=== PATIENT | female | born 1935 | race Caucasian/White ===

== ENCOUNTER 2016-06-15 10:14 | Emergency (ER) | payer OTHER, MEDICAID ==
--- NOTE | 2016-06-15 11:37 | REP ---
Clinical: Altered mental status. Comparison: 09/09/2015 . Findings: Age-related atrophy and microvascular ischemic changes are appreciated. The ventricles and sulci are symmetric. Barnard-white differentiation is maintained. There is no evidence for acute intracranial hemorrhage, mass/mass effect, pathology or infarction. No extra-axial fluid collection. Calvarium is intact. Paranasal sinuses and mastoid air cells are clear. Impression: Age related atrophy and microvascular ischemic changes. No acute intracranial hemorrhage, infarction, or mass/mass effect. Signed by Connor Arriaga MD 06/15/2016 11:27 A
[2016-06-15 11:50] LABS: BASO % 0.4 % (0.0-1.0); EOS # 0.1 K/mm3 (0.0-0.50); EOS % 1.8 % (0.0-3.0); LARGE UNSTAINED CELL # 0.2 K/mm3 (0.0-0.4); LARGE UNSTAINED CELL % 2.5 % (0.0-4.0); LYMPH # 1.2 K/mm3 (1.5-4.5); MEAN CORPUSCULAR HEMOGLOBIN 29.5 pg (27.0-33.0); MEAN CORPUSCULAR HGB CONC 33.6 g/dl (32.0-36.5); MEAN CORPUSCULAR VOLUME 87.7 fl (80.0-96.0); MONO # 0.4 K/mm3 (0.0-0.8); MONO % 6.1 % (0.0-5.0); NEUTROPHILS # 4.3 K/mm3 (1.8-7.7); NEUTROPHILS % 70.2 % (36.0-66.0); PLATELET COUNT, AUTOMATED 170 k/mm3 (150-450); RED CELL DISTRIBUTION WIDTH 12.3 % (11.5-14.5); WHITE BLOOD COUNT 6.2 K/mm3 (4.0-10.0)
[2016-06-15 11:54] LABS: ANION GAP 9 MEQ/L (8-16); BLOOD UREA NITROGEN 18 MG/DL (7-18); CALCIUM LEVEL 9.2 MG/DL (8.8-10.2); CARBON DIOXIDE LEVEL 29 MEQ/L (21-32); CHLORIDE LEVEL 98 MEQ/L (98-107); CREATININE FOR GFR 0.91 MG/DL (0.55-1.02); GLOMERULAR FILTRATION RATE > 60.0 (>32); GLUCOSE, FASTING 145 MG/DL (83-110); POTASSIUM SERUM 4.1 MEQ/L (3.5-5.1); SODIUM LEVEL 136 MEQ/L (136-145)
[2016-06-15] MEDS ORDERED: NITROFURANTOIN (MACROBID) 100 MG CAP As Ordered ONE (13:02)
--- NOTE | 2016-06-15 13:02 | ECGEPIP ---
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
--- NOTE | 2016-06-15 13:50 | EDDOCDS ---
Physician Documentation [facility] Name: Ciara Carreno Age: 80 yrs Sex: Female : 1935 Arrival Date: 06/15/2016 Time: 10:14 Bed 4 Private MD: Floyd Fall P. Disposition: 06/15 12:52 I have independently interviewed and examined the patient, and I agree with the sd1 investigation, diagnosis and treatment plan as documented by the Resident. Disposition: 06/15/16 13:25 Discharged to Home/Self Care. Impression: Urinary tract infection, site not specified. - Condition is Stable. - Discharge Instructions: Urinary Tract Infection. - Prescriptions for Macrodantin 100 mg Oral Capsule - take 1 capsule by ORAL route every 6 hours for 10 days; 40 capsule. - Medication Reconciliation, Local Pharmacy Hours, Family Work Release form. - Follow up: Floyd Fall; When: 1 week; Reason: Recheck today's complaints. - Problem is new. - Symptoms are unchanged. - Notes: You were evaluated in the emergency department for altered mental status. It was determined that you had a urinary tract infection. Your laboratory results were essentially within normal limits. Your EKG was within normal limits. You were given an antibiotic while in the ED and a prescription was given to you at time of discharge to complete in its entirety. Please follow-up with Dr. Fall in 1 week. Historical: - Allergies: No known drug Allergies; - Home Meds: 1. Namenda XR 28 mg oral CSpX 1 cap once daily 2. atorvastatin 40 mg oral tab 1 tab once daily 3. metformin 500 mg Oral tab 1 tab 2 times per day 4. Vicodin 5-500 mg Oral tab 1 tab every 4-6 hours as needed 5. Calcarb 600 With Vitamin D Oral daily 6. Aricept 5 mg Oral tab 1 tab once daily - PMHx: Dementia; Diabetes - NIDDM: controlled; Diverticulitis; Hypertension; - PSHx: ; Colonoscopy; - Social history: Smoking status: Patient states former smoker of tobacco. No barriers to communication noted, The patient speaks fluent Swedish, Speaks appropriately for age. - Family history: Not pertinent. - : The pt / caregiver states he / she is not on anticoagulants. Home medication list is obtained from family members. - Exposure Risk Screening:: None identified. Vital Signs: 10:16 BP 167 / 83; Pulse 62; Resp 18; Temp 97.0(O); Pulse Ox 99% on R/A; Weight 72.57 kg / ct3 159.99 lbs (R); Height 5 ft. 3 in. (160.02 cm) (R); Pain 0/10; 10:23 BP 184 / 88 (auto/); jo3 10:25 Pulse 56 MON; Pulse Ox 95% ; jo3 10:38 BP 174 / 82 (auto/); jo3 10:38 Pulse 60 MON; Pulse Ox 94% ; jo3 10:53 BP 167 / 77 (auto/); jo3 10:55 Pulse 66 MON; Pulse Ox 96% ; jo3 11:08 BP 154 / 75 (auto/); jo3 11:08 Pulse 58 MON; Pulse Ox 95% ; jo3 11:23 BP 159 / 81 (auto/); jo3 11:23 Pulse 66 MON; jo3 11:38 BP 145 / 71 (auto/); jo3 11:38 Pulse 62 MON; Pulse Ox 96% ; jo3 11:56 BP 196 / 84 (auto/); jo3 11:56 Pulse 62 MON; Pulse Ox 97% ; jo3 12:06 BP 151 / 71 (auto/); jo3 12:06 Pulse 58 MON; Pulse Ox 94% ; jo3 12:08 BP 145 / 70 (auto/); jo3 12:08 Pulse 56 MON; Pulse Ox 98% ; jo3 12:23 BP 135 / 69 (auto/); jo3 12:23 Pulse 56 MON; Pulse Ox 95% ; jo3 12:38 BP 160 / 80 (auto/); jo3 12:38 Pulse 58 MON; Pulse Ox 95% ; jo3 12:53 BP 148 / 82 (auto/); jo3 12:53 Pulse 58 MON; Pulse Ox 97% ; jo3 13:08 BP 168 / 85 (auto/); jo3 13:08 Pulse 72 MON; Resp 18; Temp 97.8(O); Pulse Ox 96% ; Pain 0/10; jo3 10:16 Body Mass Index 28.34 (72.57 kg, 160.02 cm) ct3 MDM: 10:33 ECG WITH READING ER PHYS+CARDIAG ordered. EDMS 11:11 CT Head Without Contrast Ordered. EDMS 11:11 CBC with Diff Ordered. EDMS 11:11 BMP Ordered. EDMS 11:11 UA Ordered. EDMS 11:59 Financial registration complete. mm15 12:02 [facility] Payment Agreement was scanned into [email or web address] and attached to record. mm15 12:37 CBC with Diff Reviewed. sd1 12:37 BMP Reviewed. sd1 12:37 UA Reviewed. sd1 12:37 CT Head Without Contrast Reviewed. sd1 12:41 REGULAR DIET ROOM SERVICE ED+DIET ordered. EDMS 12:50 ED course: 80 yo female with comorbidities presents with family reporting mild mental sd1 status change and vomiting last pm with decreased appetite. patient reports feeling improved this am however fmaily had concerns so brought to ED exam well appearing in NAD lungs ctab heart rrrr abd nontender neuro intact. 12:51 Nitrofurantoin 100 mg PO once ordered. jo4 Administered Medications: 13:06 Drug: Nitrofurantoin 100 mg Route: PO; jo3 Signatures: Dispatcher [employer] EDVA Robyn Antony MD MD sd1 Shakeel Soriano, RN RN dy Cristy Malcolm RN RN jo3 Kb Mayer mm15 Nila Reyez DO DO jo4 The chart was reviewed and I authenticate all verbal orders and agree with the evaluation and treatment provided.Attachments: 12:02 [facility] Payment Agreement mm15 MTDD
--- NOTE | 2016-06-15 13:50 | EDDOCDS ---
Nurse's Notes [facility] Name: Ciara Carreno Age: 80 yrs Sex: Female : 1935 Arrival Date: 06/15/2016 Time: 10:14 Bed 4 Private MD: Floyd Fall P. Diagnosis: Urinary tract infection, site not specified Presentation: 06/15 10:21 Presenting complaint: Patient states: seen at Neurologist yesterday for progressive AMS dy with hx of dementia. neurologist upped her dementia regimen at that time. pt called daughter last night due to not feeling well and tearful. today not feeling right. Adult Sepsis Screening: The patient does not have new or worsening altered mentation. Patient's respiratory rate is less than 22. Systolic blood pressure is greater than 100. Patient has a qSOFA score of 0- Negative Sepsis Screen. Suicide/Homicide risk assessment- the patient denies having any suicidal and/or homicidal ideations and does not present with any other emotional, behavioral or mental health complaints. Status: Patient is not a community service patrol officer or dependent. Transition of care: patient was not received from another setting of care. 10:21 Acuity: LOKI Level 3 dy 10:21 Method Of Arrival: Walkin/Carried/Asstd dy Triage Assessment: 10:27 General: Appears in no apparent distress. Pain: Denies pain. Neurological: Level of dy Consciousness is awake, alert, obeys commands, Oriented to person, place, time. Historical: - Allergies: No known drug Allergies; - Home Meds: 1. Namenda XR 28 mg oral CSpX 1 cap once daily 2. atorvastatin 40 mg oral tab 1 tab once daily 3. metformin 500 mg Oral tab 1 tab 2 times per day 4. Vicodin 5-500 mg Oral tab 1 tab every 4-6 hours as needed 5. Calcarb 600 With Vitamin D Oral daily 6. Aricept 5 mg Oral tab 1 tab once daily - PMHx: Dementia; Diabetes - NIDDM: controlled; Diverticulitis; Hypertension; - PSHx: ; Colonoscopy; - Social history: Smoking status: Patient states former smoker of tobacco. No barriers to communication noted, The patient speaks fluent [place], Speaks appropriately for age. - Family history: Not pertinent. - : The pt / caregiver states he / she is not on anticoagulants. Home medication list is obtained from family members. - Exposure Risk Screening:: None identified. Screenin:31 Screening information is obtained from family members. Screening information is jo3 obtained from the parent. Fall risk: No risks identified. Assistance ADL's: Requires assistance with medication administration, assistance is provided by family members. Abuse/DV Screen: The patient / caregiver reports he/she is: not in a situation that causes fear, pain or injury. Nutritional screening: No deficits noted. Advance Directives:. home support is adequate. Assessment: 10:50 General: Appears in no apparent distress, comfortable, Behavior is appropriate for age, jo3 cooperative. Neurological: Level of Consciousness is awake, alert, Oriented to person, place. Respiratory: Airway is patent Respiratory effort is even, unlabored. Derm: Skin is pink, warm & dry. 11:21 General: Appears in no apparent distress, comfortable, Behavior is appropriate for age, jo3 cooperative. Pain: Denies pain. Neurological: Level of Consciousness is awake, alert, Oriented to person, place. Cardiovascular: Rhythm is sinus rhythm No ectopy. Respiratory: Airway is patent Respiratory effort is even, unlabored. Respiratory: Breath sounds are clear bilaterally. Derm: Skin is pink, warm & dry. 12:27 Reassessment: Patient appears in no apparent distress at this time. Patient denies pain jo3 at this time. Resting on stretcher at this time. Awaiting results with family at bedside. Aware of plan of care . Vital Signs: 10:16 BP 167 / 83; Pulse 62; Resp 18; Temp 97.0(O); Pulse Ox 99% on R/A; Weight 72.57 kg (R); ct3 Height 5 ft. 3 in. (160.02 cm) (R); Pain 0/10; 10:23 BP 184 / 88 (auto/); jo3 10:25 Pulse 56 MON; Pulse Ox 95% ; jo3 10:38 BP 174 / 82 (auto/); jo3 10:38 Pulse 60 MON; Pulse Ox 94% ; jo3 10:53 BP 167 / 77 (auto/); jo3 10:55 Pulse 66 MON; Pulse Ox 96% ; jo3 11:08 BP 154 / 75 (auto/); jo3 11:08 Pulse 58 MON; Pulse Ox 95% ; jo3 11:23 BP 159 / 81 (auto/); jo3 11:23 Pulse 66 MON; jo3 11:38 BP 145 / 71 (auto/); jo3 11:38 Pulse 62 MON; Pulse Ox 96% ; jo3 11:56 BP 196 / 84 (auto/); jo3 11:56 Pulse 62 MON; Pulse Ox 97% ; jo3 12:06 BP 151 / 71 (auto/); jo3 12:06 Pulse 58 MON; Pulse Ox 94% ; jo3 12:08 BP 145 / 70 (auto/); jo3 12:08 Pulse 56 MON; Pulse Ox 98% ; jo3 12:23 BP 135 / 69 (auto/); jo3 12:23 Pulse 56 MON; Pulse Ox 95% ; jo3 12:38 BP 160 / 80 (auto/); jo3 12:38 Pulse 58 MON; Pulse Ox 95% ; jo3 12:53 BP 148 / 82 (auto/); jo3 12:53 Pulse 58 MON; Pulse Ox 97% ; jo3 13:08 BP 168 / 85 (auto/); jo3 13:08 Pulse 72 MON; Resp 18; Temp 97.8(O); Pulse Ox 96% ; Pain 0/10; jo3 10:16 Body Mass Index 28.34 (72.57 kg, 160.02 cm) ct3 Vitals: 10:16 Log In Time: June 15, 2016 at 10:13. RN notified that patient meets Red Flag ct3 criteria. ED Course: 10:15 Patient visited by Daniela Palumbo PCA. ct3 10:15 Floyd Fall is Private Physician. ct3 10:15 Patient moved to Waiting ct3 10:17 Patient moved to Pre RCE ct3 10:18 Patient moved to 4 ct3 10:19 Nila Reyez DO is PHCP. jo4 10:19 Robyn Antony MD is Attending Physician. jo4 10:24 Triage Initiated dy 10:43 EKG done. (by ED staff). Reviewed by Nila Reyez DO. rn1 11:03 Patient visited by Robyn Antony MD. sd1 11:21 BMP Sent. jo3 11:21 CBC with Diff Sent. jo3 11:31 The patient / caregiver is instructed regarding the plan of care and ED course. jo3 11:31 Inserted saline lock: 18 gauge in right antecubital area. Labs drawn. (by ED staff). jo3 Sent per order to lab. 11:35 Patient visited by Cristy Malcolm RN. jo3 12:02 [facility] Payment Agreement was scanned into [employer] and attached to record. mm15 12:03 UA Sent. jo3 12:11 CT Head Without Contrast Returned. EDMS 12:27 Patient visited by Cristy Malcolm RN. jo3 12:57 Patient visited by Dave Gunn PCA. jlf 13:24 Floyd Fall is Referral Physician. jo4 13:43 EKG-ADULT Returned. EDMS 13:48 Discontinued IV lock intact, bleeding controlled, pressure dressing applied, No jo3 redness/swelling at site. No procedures done that require assistance. Administered Medications: 13:06 Drug: Nitrofurantoin 100 mg Route: PO; jo3 Order Results: Lab Order: CBC with Diff; SPEC'M 06/15/16 10:31 Test: WHITE BLOOD COUNT; Value: 6.2; Range: 4.0-10.0; Units: K/mm3; Status: F Test: RED BLOOD COUNT; Value: 4.26; Range: 4.00-5.40; Units: M/mm3; Status: F Test: HEMOGLOBIN; Value: 12.5; Range: 12.0-16.0; Units: g/dl; Status: F Test: HEMATOCRIT; Value: 37.4; Range: 36.0-47.0; Units: %; Status: F Test: MEAN CORPUSCULAR VOLUME; Value: 87.7; Range: 80.0-96.0; Units: fl; Status: F Test: MEAN CORPUSCULAR HEMOGLOBIN; Value: 29.5; Range: 27.0-33.0; Units: pg; Status: F Test: MEAN CORPUSCULAR HGB CONC; Value: 33.6; Range: 32.0-36.5; Units: g/dl; Status: F Test: RED CELL DISTRIBUTION WIDTH; Value: 12.3; Range: 11.5-14.5; Units: %; Status: F Test: PLATELET COUNT, AUTOMATED; Value: 170; Range: 150-450; Units: k/mm3; Status: F Test: NEUTROPHILS %; Value: 70.2; Range: 36.0-66.0; Abnormal: Above high normal; Units: %; Status: F Test: LYMPH %; Value: 19.0; Range: 24.0-44.0; Abnormal: Below low normal; Units: %; Status: F Test: MONO %; Value: 6.1; Range: 0.0-5.0; Abnormal: Above high normal; Units: %; Status: F Test: EOS %; Value: 1.8; Range: 0.0-3.0; Units: %; Status: F Test: BASO %; Value: 0.4; Range: 0.0-1.0; Units: %; Status: F Test: LARGE UNSTAINED CELL %; Value: 2.5; Range: 0.0-4.0; Units: %; Status: F Test: NEUTROPHILS #; Value: 4.3; Range: 1.8-7.7; Units: K/mm3; Status: F Test: LYMPH #; Value: 1.2; Range: 1.5-4.5; Abnormal: Below low normal; Units: K/mm3; Status: F Test: MONO #; Value: 0.4; Range: 0.0-0.8; Units: K/mm3; Status: F Test: EOS #; Value: 0.1; Range: 0.0-0.50; Units: K/mm3; Status: F Test: BASO #; Value: 0.0; Range: 0.0-0.2; Units: K/mm3; Status: F Test: LARGE UNSTAINED CELL #; Value: 0.2; Range: 0.0-0.4; Units: K/mm3; Status: F Lab Order: [facility]; SPEC'M 06/15/16 10:31 Test: GLUCOSE, FASTING; Value: 145; Range: 83-110; Abnormal: Above high normal; Units: MG/DL; Status: F Test: BLOOD UREA NITROGEN; Value: 18; Range: 7-18; Units: MG/DL; Status: F Test: CREATININE FOR GFR; Value: 0.91; Range: 0.55-1.02; Units: MG/DL; Status: F Test: GLOMERULAR FILTRATION RATE; Value: > 60.0; Range: >32; Status: F Test: SODIUM LEVEL; Value: 136; Range: 136-145; Units: MEQ/L; Status: F Test: POTASSIUM SERUM; Value: 4.1; Range: 3.5-5.1; Units: MEQ/L; Status: F Test: CHLORIDE LEVEL; Value: 98; Range: 98-107; Units: MEQ/L; Status: F Test: CARBON DIOXIDE LEVEL; Value: 29; Range: 21-32; Units: MEQ/L; Status: F Test: ANION GAP; Value: 9; Range: 8-16; Units: MEQ/L; Status: F Test: CALCIUM LEVEL; Value: 9.2; Range: 8.8-10.2; Units: MG/DL; Status: F Test Note: ; Units are mL/min/1.73 m2 Chronic Kidney Disease Staging per NKF: Stage I & II GFR >=60 Normal to Mildly Decreased Stage III GFR 30-59 Moderately Decreased Stage IV GFR 15-29 Severely Decreased Stage V GFR <15 Very Little GFR Left ESRD GFR <15 on PARTS COUNTER CLERK Lab Order: UA; SPEC'M 06/15/16 11:57 Test: APPEARANCE, URINE; Value: HAZY; Range: CLEAR; Status: F Test: COLOR, URINE; Value: YELLOW; Range: YELLOW; Status: F Test: PH,URINE; Value: 6.0; Range: 5.0-9.0; Units: UNITS; Status: F Test: SPECIFIC GRAVITY URINE AUTO; Value: 1.009; Range: 1.002-1.035; Status: F Test: PROTEIN, URINE AUTO; Value: NEGATIVE; Range: NEGATIVE; Units: mg/dL; Status: F Test: GLUCOSE, URINE (UA) AUTO; Value: NEGATIVE; Range: NEGATIVE; Units: mg/dL; Status: F Test: KETONE, URINE AUTO; Value: NEGATIVE; Range: NEGATIVE; Units: mg/dL; Status: F Test: UROBILINOGEN, URINE AUTO; Value: 0.2; Range: 0.0-2.0; Units: mg/dL; Status: F Test: BILIRUBIN, URINE AUTO; Value: NEGATIVE; Range: NEGATIVE; Status: F Test: NITRITE, URINE AUTO; Value: NEGATIVE; Range: NEGATIVE; Status: F Test: LEUKOCYTE ESTERASE, URINE AUTO; Value: 3+; Range: NEGATIVE; Abnormal: Above high normal; Status: F Test: BLOOD, URINE BLOOD; Value: 2+; Range: NEGATIVE; Abnormal: Above high normal; Status: F Test: WBC, URINE AUTO; Value: 29; Range: 0-3; Abnormal: Above high normal; Units: /HPF; Status: F Test: RBC, URINE AUTO; Value: 10; Range: 0-3; Abnormal: Above high normal; Units: /HPF; Status: F Test: BACTERIA, URINE AUTO; Value: 2+; Range: NEGATIVE; Abnormal: Above high normal; Status: F Test: SQUAMOUS EPITHELIAL CELL UR AU; Value: 6; Range: 0-6; Units: /HPF; Status: F Test: MUCUS, URINE; Value: SMALL; Range: NEGATIVE; Status: F Test: HYALINE CAST, URINE AUTO; Value: 0; Range: 0-1; Units: /LPF; Status: F Radiology Order: EKG-ADULT Test: EKG-ADULT REASON FOR EXAMINATION: ?overdose; Stationary ECG Study; [facility] - ED; ; Test Date: 2016-06-15; Pat Name: CIARA CARRENO Department:; Room: -; 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; : 1935 Requested By: NILA CRUZ; Order Number: [id number] Reading MD: Kameron Melgar; Measurements; Intervals [place]; Rate: 62 P: 31; OR: 145 QRS: -14; QRSD: 85 T: 44; QT: 451; QTc: 461; Interpretive Statements; SINUS RHYTHM; NONSPECIFIC T-WAVE ABNORMALITY; ; Electronically Signed On 06-15-2016 13:02:17 EST by Kameron Melgar; Radiology Order: CT Head Without Contrast Test: CT Head Without Contrast REASON FOR EXAMINATION: Altered mental status; Clinical: Altered mental status.; ; Comparison: 09/09/2015 .; ; Findings:; Age-related atrophy and microvascular ischemic changes are appreciated. The; ventricles and sulci are symmetric. Barnard-white differentiation is maintained.; There is no evidence for acute intracranial hemorrhage, mass/mass effect,; pathology or infarction. No extra-axial fluid collection. Calvarium is intact.; Paranasal sinuses and mastoid air cells are clear.; ; Impression:; Age related atrophy and microvascular ischemic changes.; No acute intracranial hemorrhage, infarction, or mass/mass effect.; ; ; Signed by; Connor Arriaga MD 06/15/2016 11:27 A; Outcome: 13:25 Discharge ordered by Provider. jo4 13:48 Discharge Assessment: Patient awake, alert and oriented x 3. No cognitive and/or jo3 functional deficits noted. Patient verbalized understanding of disposition instructions. patient administered narcotics - no. The following High Risk Discharge criteria are identified: None. Discharged to home ambulatory, with family. Condition: stable Condition: improved. Discharge instructions given to patient, Instructed on discharge instructions, follow up and referral plans. medication usage, Demonstrated understanding of instructions, medications, Pt was receptive of discharge instructions/ teaching. CT Study completed. Property sent home with patient. 13:49 Patient left the ED. jo3 Signatures: Dispatcher [employer] EDMS Robyn Antony MD MD sd1 Shakeel Soriano, RN RN Cristy Azul RN RN jo3 Daniela Palumbo, SUPPLY CHAIN LOGISTICS MANAGER SUPPLY CHAIN LOGISTICS MANAGER ct3 Kb Mayer mm15 Dave Gunn, SUPPLY CHAIN LOGISTICS MANAGER SUPPLY CHAIN LOGISTICS MANAGER jlf Antoine Lazo rn1 Nila Reyez DO DO jo4 Corrections: (The following items were deleted from the chart) 13:49 13:48 Discharge instructions given to patient, Instructed on discharge instructions, jo3 follow up and referral plans. medication usage, Demonstrated understanding of instructions, medications, Pt was receptive of discharge instructions/ teaching. jo3 13:49 13:48 No special radiology studies were completed jo3 jo3 MTDD
--- NOTE | 2016-06-17 14:50 | EDDOCDS ---
Nurse's Notes [facility] Name: Ciara Carreno Age: 80 yrs Sex: Female : 1935 Arrival Date: 06/15/2016 Time: 10:14 Bed 4 Private MD: Floyd Fall P. Diagnosis: Urinary tract infection, site not specified Presentation: 06/15 10:21 Presenting complaint: Patient states: seen at Neurologist yesterday for progressive AMS dy with hx of dementia. neurologist upped her dementia regimen at that time. pt called daughter last night due to not feeling well and tearful. today not feeling right. Adult Sepsis Screening: The patient does not have new or worsening altered mentation. Patient's respiratory rate is less than 22. Systolic blood pressure is greater than 100. Patient has a qSOFA score of 0- Negative Sepsis Screen. Suicide/Homicide risk assessment- the patient denies having any suicidal and/or homicidal ideations and does not present with any other emotional, behavioral or mental health complaints. Status: Patient is not a financial report service sales agent or dependent. Transition of care: patient was not received from another setting of care. 10:21 Acuity: LOKI Level 3 dy 10:21 Method Of Arrival: Walkin/Carried/Asstd dy Triage Assessment: 10:27 General: Appears in no apparent distress. Pain: Denies pain. Neurological: Level of dy Consciousness is awake, alert, obeys commands, Oriented to person, place, time. Historical: - Allergies: No known drug Allergies; - Home Meds: 1. Namenda XR 28 mg oral CSpX 1 cap once daily 2. atorvastatin 40 mg oral tab 1 tab once daily 3. metformin 500 mg Oral tab 1 tab 2 times per day 4. Vicodin 5-500 mg Oral tab 1 tab every 4-6 hours as needed 5. Calcarb 600 With Vitamin D Oral daily 6. Aricept 5 mg Oral tab 1 tab once daily - PMHx: Dementia; Diabetes - NIDDM: controlled; Diverticulitis; Hypertension; - PSHx: ; Colonoscopy; - Social history: Smoking status: Patient states former smoker of tobacco. No barriers to communication noted, The patient speaks fluent [place], Speaks appropriately for age. - Family history: Not pertinent. - : The pt / caregiver states he / she is not on anticoagulants. Home medication list is obtained from family members. - Exposure Risk Screening:: None identified. Screenin:31 Screening information is obtained from family members. Screening information is jo3 obtained from the parent. Fall risk: No risks identified. Assistance ADL's: Requires assistance with medication administration, assistance is provided by family members. Abuse/DV Screen: The patient / caregiver reports he/she is: not in a situation that causes fear, pain or injury. Nutritional screening: No deficits noted. Advance Directives:. home support is adequate. Assessment: 10:50 General: Appears in no apparent distress, comfortable, Behavior is appropriate for age, jo3 cooperative. Neurological: Level of Consciousness is awake, alert, Oriented to person, place. Respiratory: Airway is patent Respiratory effort is even, unlabored. Derm: Skin is pink, warm & dry. 11:21 General: Appears in no apparent distress, comfortable, Behavior is appropriate for age, jo3 cooperative. Pain: Denies pain. Neurological: Level of Consciousness is awake, alert, Oriented to person, place. Cardiovascular: Rhythm is sinus rhythm No ectopy. Respiratory: Airway is patent Respiratory effort is even, unlabored. Respiratory: Breath sounds are clear bilaterally. Derm: Skin is pink, warm & dry. 12:27 Reassessment: Patient appears in no apparent distress at this time. Patient denies pain jo3 at this time. Resting on stretcher at this time. Awaiting results with family at bedside. Aware of plan of care . Vital Signs: 10:16 BP 167 / 83; Pulse 62; Resp 18; Temp 97.0(O); Pulse Ox 99% on R/A; Weight 72.57 kg (R); ct3 Height 5 ft. 3 in. (160.02 cm) (R); Pain 0/10; 10:23 BP 184 / 88 (auto/); jo3 10:25 Pulse 56 MON; Pulse Ox 95% ; jo3 10:38 BP 174 / 82 (auto/); jo3 10:38 Pulse 60 MON; Pulse Ox 94% ; jo3 10:53 BP 167 / 77 (auto/); jo3 10:55 Pulse 66 MON; Pulse Ox 96% ; jo3 11:08 BP 154 / 75 (auto/); jo3 11:08 Pulse 58 MON; Pulse Ox 95% ; jo3 11:23 BP 159 / 81 (auto/); jo3 11:23 Pulse 66 MON; jo3 11:38 BP 145 / 71 (auto/); jo3 11:38 Pulse 62 MON; Pulse Ox 96% ; jo3 11:56 BP 196 / 84 (auto/); jo3 11:56 Pulse 62 MON; Pulse Ox 97% ; jo3 12:06 BP 151 / 71 (auto/); jo3 12:06 Pulse 58 MON; Pulse Ox 94% ; jo3 12:08 BP 145 / 70 (auto/); jo3 12:08 Pulse 56 MON; Pulse Ox 98% ; jo3 12:23 BP 135 / 69 (auto/); jo3 12:23 Pulse 56 MON; Pulse Ox 95% ; jo3 12:38 BP 160 / 80 (auto/); jo3 12:38 Pulse 58 MON; Pulse Ox 95% ; jo3 12:53 BP 148 / 82 (auto/); jo3 12:53 Pulse 58 MON; Pulse Ox 97% ; jo3 13:08 BP 168 / 85 (auto/); jo3 13:08 Pulse 72 MON; Resp 18; Temp 97.8(O); Pulse Ox 96% ; Pain 0/10; jo3 10:16 Body Mass Index 28.34 (72.57 kg, 160.02 cm) ct3 Vitals: 10:16 Log In Time: June 15, 2016 at 10:13. RN notified that patient meets Red Flag ct3 criteria. ED Course: 10:15 Patient visited by Daniela Palumbo PCA. ct3 10:15 Floyd Fall is Private Physician. ct3 10:15 Patient moved to Waiting ct3 10:17 Patient moved to Pre RCE ct3 10:18 Patient moved to 4 ct3 10:19 Nila Reyez DO is PHCP. jo4 10:19 Robyn Antony MD is Attending Physician. jo4 10:24 Triage Initiated dy 10:43 EKG done. (by ED staff). Reviewed by Nila Reyez DO. rn1 11:03 Patient visited by Robyn Antony MD. sd1 11:21 BMP Sent. jo3 11:21 CBC with Diff Sent. jo3 11:31 The patient / caregiver is instructed regarding the plan of care and ED course. jo3 11:31 Inserted saline lock: 18 gauge in right antecubital area. Labs drawn. (by ED staff). jo3 Sent per order to lab. 11:35 Patient visited by Cristy Malcolm RN. jo3 12:02 [facility] Payment Agreement was scanned into [employer] and attached to record. mm15 12:03 UA Sent. jo3 12:11 CT Head Without Contrast Returned. EDMS 12:27 Patient visited by Cristy Malcolm RN. jo3 12:57 Patient visited by Dave Gunn PCA. jlf 13:24 Floyd Fall is Referral Physician. jo4 13:43 EKG-ADULT Returned. EDMS 13:48 Discontinued IV lock intact, bleeding controlled, pressure dressing applied, No jo3 redness/swelling at site. No procedures done that require assistance. 06/16 08:55 T-Sheet-- Draft Copy was scanned into [employer] and attached to record. [facility] 11:54 ECG/EKG was scanned into [employer] and attached to record. gb Administered Medications: 06/15 13:06 Drug: Nitrofurantoin 100 mg Route: PO; jo3 Order Results: Lab Order: CBC with Diff; SPEC'M 06/15/16 10:31 Test: WHITE BLOOD COUNT; Value: 6.2; Range: 4.0-10.0; Units: K/mm3; Status: F Test: RED BLOOD COUNT; Value: 4.26; Range: 4.00-5.40; Units: M/mm3; Status: F Test: HEMOGLOBIN; Value: 12.5; Range: 12.0-16.0; Units: g/dl; Status: F Test: HEMATOCRIT; Value: 37.4; Range: 36.0-47.0; Units: %; Status: F Test: MEAN CORPUSCULAR VOLUME; Value: 87.7; Range: 80.0-96.0; Units: fl; Status: F Test: MEAN CORPUSCULAR HEMOGLOBIN; Value: 29.5; Range: 27.0-33.0; Units: pg; Status: F Test: MEAN CORPUSCULAR HGB CONC; Value: 33.6; Range: 32.0-36.5; Units: g/dl; Status: F Test: RED CELL DISTRIBUTION WIDTH; Value: 12.3; Range: 11.5-14.5; Units: %; Status: F Test: PLATELET COUNT, AUTOMATED; Value: 170; Range: 150-450; Units: k/mm3; Status: F Test: NEUTROPHILS %; Value: 70.2; Range: 36.0-66.0; Abnormal: Above high normal; Units: %; Status: F Test: LYMPH %; Value: 19.0; Range: 24.0-44.0; Abnormal: Below low normal; Units: %; Status: F Test: MONO %; Value: 6.1; Range: 0.0-5.0; Abnormal: Above high normal; Units: %; Status: F Test: EOS %; Value: 1.8; Range: 0.0-3.0; Units: %; Status: F Test: BASO %; Value: 0.4; Range: 0.0-1.0; Units: %; Status: F Test: LARGE UNSTAINED CELL %; Value: 2.5; Range: 0.0-4.0; Units: %; Status: F Test: NEUTROPHILS #; Value: 4.3; Range: 1.8-7.7; Units: K/mm3; Status: F Test: LYMPH #; Value: 1.2; Range: 1.5-4.5; Abnormal: Below low normal; Units: K/mm3; Status: F Test: MONO #; Value: 0.4; Range: 0.0-0.8; Units: K/mm3; Status: F Test: EOS #; Value: 0.1; Range: 0.0-0.50; Units: K/mm3; Status: F Test: BASO #; Value: 0.0; Range: 0.0-0.2; Units: K/mm3; Status: F Test: LARGE UNSTAINED CELL #; Value: 0.2; Range: 0.0-0.4; Units: K/mm3; Status: F Lab Order: [facility]; SPEC'M 06/15/16 10:31 Test: GLUCOSE, FASTING; Value: 145; Range: 83-110; Abnormal: Above high normal; Units: MG/DL; Status: F Test: BLOOD UREA NITROGEN; Value: 18; Range: 7-18; Units: MG/DL; Status: F Test: CREATININE FOR GFR; Value: 0.91; Range: 0.55-1.02; Units: MG/DL; Status: F Test: GLOMERULAR FILTRATION RATE; Value: > 60.0; Range: >32; Status: F Test: SODIUM LEVEL; Value: 136; Range: 136-145; Units: MEQ/L; Status: F Test: POTASSIUM SERUM; Value: 4.1; Range: 3.5-5.1; Units: MEQ/L; Status: F Test: CHLORIDE LEVEL; Value: 98; Range: 98-107; Units: MEQ/L; Status: F Test: CARBON DIOXIDE LEVEL; Value: 29; Range: 21-32; Units: MEQ/L; Status: F Test: ANION GAP; Value: 9; Range: 8-16; Units: MEQ/L; Status: F Test: CALCIUM LEVEL; Value: 9.2; Range: 8.8-10.2; Units: MG/DL; Status: F Test Note: ; Units are mL/min/1.73 m2 Chronic Kidney Disease Staging per NKF: Stage I & II GFR >=60 Normal to Mildly Decreased Stage III GFR 30-59 Moderately Decreased Stage IV GFR 15-29 Severely Decreased Stage V GFR <15 Very Little GFR Left ESRD GFR <15 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 Lab Order: UA; SPEC'M 06/15/16 11:57 Test: APPEARANCE, URINE; Value: HAZY; Range: CLEAR; Status: F Test: COLOR, URINE; Value: YELLOW; Range: YELLOW; Status: F Test: PH,URINE; Value: 6.0; Range: 5.0-9.0; Units: UNITS; Status: F Test: SPECIFIC GRAVITY URINE AUTO; Value: 1.009; Range: 1.002-1.035; Status: F Test: PROTEIN, URINE AUTO; Value: NEGATIVE; Range: NEGATIVE; Units: mg/dL; Status: F Test: GLUCOSE, URINE (UA) AUTO; Value: NEGATIVE; Range: NEGATIVE; Units: mg/dL; Status: F Test: KETONE, URINE AUTO; Value: NEGATIVE; Range: NEGATIVE; Units: mg/dL; Status: F Test: UROBILINOGEN, URINE AUTO; Value: 0.2; Range: 0.0-2.0; Units: mg/dL; Status: F Test: BILIRUBIN, URINE AUTO; Value: NEGATIVE; Range: NEGATIVE; Status: F Test: NITRITE, URINE AUTO; Value: NEGATIVE; Range: NEGATIVE; Status: F Test: LEUKOCYTE ESTERASE, URINE AUTO; Value: 3+; Range: NEGATIVE; Abnormal: Above high normal; Status: F Test: BLOOD, URINE BLOOD; Value: 2+; Range: NEGATIVE; Abnormal: Above high normal; Status: F Test: WBC, URINE AUTO; Value: 29; Range: 0-3; Abnormal: Above high normal; Units: /HPF; Status: F Test: RBC, URINE AUTO; Value: 10; Range: 0-3; Abnormal: Above high normal; Units: /HPF; Status: F Test: BACTERIA, URINE AUTO; Value: 2+; Range: NEGATIVE; Abnormal: Above high normal; Status: F Test: SQUAMOUS EPITHELIAL CELL UR AU; Value: 6; Range: 0-6; Units: /HPF; Status: F Test: MUCUS, URINE; Value: SMALL; Range: NEGATIVE; Status: F Test: HYALINE CAST, URINE AUTO; Value: 0; Range: 0-1; Units: /LPF; Status: F Radiology Order: EKG-ADULT Test: EKG-ADULT REASON FOR EXAMINATION: ?overdose; Stationary ECG Study; [facility] - ED; ; Test Date: 2016-06-15; Pat Name: CIARA CARRENO Department:; Room: -; 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; : 1935 Requested By: NILA CRUZ; Order Number: [id number] Reading MD: Kameron Melgar; Measurements; Intervals [place]; Rate: 62 P: 31; OK: 145 QRS: -14; QRSD: 85 T: 44; QT: 451; QTc: 461; Interpretive Statements; SINUS RHYTHM; NONSPECIFIC T-WAVE ABNORMALITY; ; Electronically Signed On 06-15-2016 13:02:17 EST by Kameron Melgar; Radiology Order: CT Head Without Contrast Test: CT Head Without Contrast REASON FOR EXAMINATION: Altered mental status; Clinical: Altered mental status.; ; Comparison: 09/09/2015 .; ; Findings:; Age-related atrophy and microvascular ischemic changes are appreciated. The; ventricles and sulci are symmetric. Barnard-white differentiation is maintained.; There is no evidence for acute intracranial hemorrhage, mass/mass effect,; pathology or infarction. No extra-axial fluid collection. Calvarium is intact.; Paranasal sinuses and mastoid air cells are clear.; ; Impression:; Age related atrophy and microvascular ischemic changes.; No acute intracranial hemorrhage, infarction, or mass/mass effect.; ; ; Signed by; Connor Arriaga MD 06/15/2016 11:27 A; Outcome: 13:25 Discharge ordered by Provider. jo4 13:48 Discharge Assessment: Patient awake, alert and oriented x 3. No cognitive and/or jo3 functional deficits noted. Patient verbalized understanding of disposition instructions. patient administered narcotics - no. The following High Risk Discharge criteria are identified: None. Discharged to home ambulatory, with family. Condition: stable Condition: improved. Discharge instructions given to patient, Instructed on discharge instructions, follow up and referral plans. medication usage, Demonstrated understanding of instructions, medications, Pt was receptive of discharge instructions/ teaching. CT Study completed. Property sent home with patient. 13:49 Patient left the ED. jo3 Signatures: [employer]patcher [employer] EDMS Robyn Antony MD MD sd1 Nat Roblero, Reg Reg Shakeel Blackwell, RN RN Cristy Azul RN RN jo3 Daniela Palumbo, CERTIFIED COATINGS INSPECTOR CERTIFIED COATINGS INSPECTOR ct3 Kb Mayer mm15 Dave Gunn, CERTIFIED COATINGS INSPECTOR CERTIFIED COATINGS INSPECTOR ronf Antoine Lazo rn1 Nila Reyez DO DO jo4 Robyn Choi Corrections: (The following items were deleted from the chart) 13:49 13:48 Discharge instructions given to patient, Instructed on discharge instructions, jo3 follow up and referral plans. medication usage, Demonstrated understanding of instructions, medications, Pt was receptive of discharge instructions/ teaching. jo3 13:49 13:48 No special radiology studies were completed jo3 jo3 Chart Complete MTDD
--- NOTE | 2016-06-17 14:50 | EDDOCDS ---
Physician Documentation [facility] Name: Ciara Carreno Age: 80 yrs Sex: Female : 1935 Arrival Date: 06/15/2016 Time: 10:14 Bed 4 Private MD: Floyd Fall P. Disposition: 06/15 12:52 I have independently interviewed and examined the patient, and I agree with the sd1 investigation, diagnosis and treatment plan as documented by the Resident. Disposition: 06/15/16 13:25 Discharged to Home/Self Care. Impression: Urinary tract infection, site not specified. - Condition is Stable. - Discharge Instructions: Urinary Tract Infection. - Prescriptions for Macrodantin 100 mg Oral Capsule - take 1 capsule by ORAL route every 6 hours for 10 days; 40 capsule. - Medication Reconciliation, Local Pharmacy Hours, Family Work Release form. - Follow up: Floyd Fall; When: 1 week; Reason: Recheck today's complaints. - Problem is new. - Symptoms are unchanged. - Notes: You were evaluated in the emergency department for altered mental status. It was determined that you had a urinary tract infection. Your laboratory results were essentially within normal limits. Your EKG was within normal limits. You were given an antibiotic while in the ED and a prescription was given to you at time of discharge to complete in its entirety. Please follow-up with Dr. Fall in 1 week. Historical: - Allergies: No known drug Allergies; - Home Meds: 1. Namenda XR 28 mg oral CSpX 1 cap once daily 2. atorvastatin 40 mg oral tab 1 tab once daily 3. metformin 500 mg Oral tab 1 tab 2 times per day 4. Vicodin 5-500 mg Oral tab 1 tab every 4-6 hours as needed 5. Calcarb 600 With Vitamin D Oral daily 6. Aricept 5 mg Oral tab 1 tab once daily - PMHx: Dementia; Diabetes - NIDDM: controlled; Diverticulitis; Hypertension; - PSHx: ; Colonoscopy; - Social history: Smoking status: Patient states former smoker of tobacco. No barriers to communication noted, The patient speaks fluent Armenian, Speaks appropriately for age. - Family history: Not pertinent. - : The pt / caregiver states he / she is not on anticoagulants. Home medication list is obtained from family members. - Exposure Risk Screening:: None identified. Vital Signs: 10:16 BP 167 / 83; Pulse 62; Resp 18; Temp 97.0(O); Pulse Ox 99% on R/A; Weight 72.57 kg / ct3 159.99 lbs (R); Height 5 ft. 3 in. (160.02 cm) (R); Pain 0/10; 10:23 BP 184 / 88 (auto/); jo3 10:25 Pulse 56 MON; Pulse Ox 95% ; jo3 10:38 BP 174 / 82 (auto/); jo3 10:38 Pulse 60 MON; Pulse Ox 94% ; jo3 10:53 BP 167 / 77 (auto/); jo3 10:55 Pulse 66 MON; Pulse Ox 96% ; jo3 11:08 BP 154 / 75 (auto/); jo3 11:08 Pulse 58 MON; Pulse Ox 95% ; jo3 11:23 BP 159 / 81 (auto/); jo3 11:23 Pulse 66 MON; jo3 11:38 BP 145 / 71 (auto/); jo3 11:38 Pulse 62 MON; Pulse Ox 96% ; jo3 11:56 BP 196 / 84 (auto/); jo3 11:56 Pulse 62 MON; Pulse Ox 97% ; jo3 12:06 BP 151 / 71 (auto/); jo3 12:06 Pulse 58 MON; Pulse Ox 94% ; jo3 12:08 BP 145 / 70 (auto/); jo3 12:08 Pulse 56 MON; Pulse Ox 98% ; jo3 12:23 BP 135 / 69 (auto/); jo3 12:23 Pulse 56 MON; Pulse Ox 95% ; jo3 12:38 BP 160 / 80 (auto/); jo3 12:38 Pulse 58 MON; Pulse Ox 95% ; jo3 12:53 BP 148 / 82 (auto/); jo3 12:53 Pulse 58 MON; Pulse Ox 97% ; jo3 13:08 BP 168 / 85 (auto/); jo3 13:08 Pulse 72 MON; Resp 18; Temp 97.8(O); Pulse Ox 96% ; Pain 0/10; jo3 10:16 Body Mass Index 28.34 (72.57 kg, 160.02 cm) ct3 MDM: 10:33 ECG WITH READING ER PHYS+CARDIAG ordered. EDMS 11:11 CT Head Without Contrast Ordered. EDMS 11:11 CBC with Diff Ordered. EDMS 11:11 BMP Ordered. EDMS 11:11 UA Ordered. EDMS 11:59 Financial registration complete. mm15 12:02 [facility] Payment Agreement was scanned into [employer] and attached to record. mm15 12:37 CBC with Diff Reviewed. sd1 12:37 BMP Reviewed. sd1 12:37 UA Reviewed. sd1 12:37 CT Head Without Contrast Reviewed. sd1 12:41 REGULAR DIET ROOM SERVICE ED+DIET ordered. EDMS 12:50 ED course: 80 yo female with comorbidities presents with family reporting mild mental sd1 status change and vomiting last pm with decreased appetite. patient reports feeling improved this am however fmaily had concerns so brought to ED exam well appearing in NAD lungs ctab heart rrrr abd nontender neuro intact. 12:51 Nitrofurantoin 100 mg PO once ordered. jo4 06/16 08:55 T-Sheet-- Draft Copy was scanned into [employer] and attached to record. se 11:54 ECG/EKG was scanned into [employer] and attached to record. gb Administered Medications: 06/15 13:06 Drug: Nitrofurantoin 100 mg Route: PO; jo3 Signatures: [employer]patcher [employer] EDTX Robyn Antony MD MD sd1 Nat Roblero, [place] Reg gb Shakeel Soriano, Cristy Rico RN, RN RN jo3 Kb Mayer mm15 Nila Reyez DO DO joRobyn Mandel The chart was reviewed and I authenticate all verbal orders and agree with the evaluation and treatment provided.Attachments: 12:02 [facility] Payment Agreement mm15 06/16 08:55 T-Sheet-- Draft Copy [facility] 11:54 ECG/EKG gb Chart Complete MTDD
--- NOTE | 2016-06-17 14:50 | EDDOCDS ---
Physician Documentation [facility] Name: Ciara Carreno Age: 80 yrs Sex: Female : 1935 Arrival Date: 06/15/2016 Time: 10:14 Bed 4 Private MD: Floyd Fall P. Disposition: 06/15 12:52 I have independently interviewed and examined the patient, and I agree with the sd1 investigation, diagnosis and treatment plan as documented by the Resident. Disposition: 06/15/16 13:25 Discharged to Home/Self Care. Impression: Urinary tract infection, site not specified. - Condition is Stable. - Discharge Instructions: Urinary Tract Infection. - Prescriptions for Macrodantin 100 mg Oral Capsule - take 1 capsule by ORAL route every 6 hours for 10 days; 40 capsule. - Medication Reconciliation, Local Pharmacy Hours, Family Work Release form. - Follow up: Floyd Fall; When: 1 week; Reason: Recheck today's complaints. - Problem is new. - Symptoms are unchanged. - Notes: You were evaluated in the emergency department for altered mental status. It was determined that you had a urinary tract infection. Your laboratory results were essentially within normal limits. Your EKG was within normal limits. You were given an antibiotic while in the ED and a prescription was given to you at time of discharge to complete in its entirety. Please follow-up with Dr. Fall in 1 week. Historical: - Allergies: No known drug Allergies; - Home Meds: 1. Namenda XR 28 mg oral CSpX 1 cap once daily 2. atorvastatin 40 mg oral tab 1 tab once daily 3. metformin 500 mg Oral tab 1 tab 2 times per day 4. Vicodin 5-500 mg Oral tab 1 tab every 4-6 hours as needed 5. Calcarb 600 With Vitamin D Oral daily 6. Aricept 5 mg Oral tab 1 tab once daily - PMHx: Dementia; Diabetes - NIDDM: controlled; Diverticulitis; Hypertension; - PSHx: ; Colonoscopy; - Social history: Smoking status: Patient states former smoker of tobacco. No barriers to communication noted, The patient speaks fluent Indonesian, Speaks appropriately for age. - Family history: Not pertinent. - : The pt / caregiver states he / she is not on anticoagulants. Home medication list is obtained from family members. - Exposure Risk Screening:: None identified. Vital Signs: 10:16 BP 167 / 83; Pulse 62; Resp 18; Temp 97.0(O); Pulse Ox 99% on R/A; Weight 72.57 kg / ct3 159.99 lbs (R); Height 5 ft. 3 in. (160.02 cm) (R); Pain 0/10; 10:23 BP 184 / 88 (auto/); jo3 10:25 Pulse 56 MON; Pulse Ox 95% ; jo3 10:38 BP 174 / 82 (auto/); jo3 10:38 Pulse 60 MON; Pulse Ox 94% ; jo3 10:53 BP 167 / 77 (auto/); jo3 10:55 Pulse 66 MON; Pulse Ox 96% ; jo3 11:08 BP 154 / 75 (auto/); jo3 11:08 Pulse 58 MON; Pulse Ox 95% ; jo3 11:23 BP 159 / 81 (auto/); jo3 11:23 Pulse 66 MON; jo3 11:38 BP 145 / 71 (auto/); jo3 11:38 Pulse 62 MON; Pulse Ox 96% ; jo3 11:56 BP 196 / 84 (auto/); jo3 11:56 Pulse 62 MON; Pulse Ox 97% ; jo3 12:06 BP 151 / 71 (auto/); jo3 12:06 Pulse 58 MON; Pulse Ox 94% ; jo3 12:08 BP 145 / 70 (auto/); jo3 12:08 Pulse 56 MON; Pulse Ox 98% ; jo3 12:23 BP 135 / 69 (auto/); jo3 12:23 Pulse 56 MON; Pulse Ox 95% ; jo3 12:38 BP 160 / 80 (auto/); jo3 12:38 Pulse 58 MON; Pulse Ox 95% ; jo3 12:53 BP 148 / 82 (auto/); jo3 12:53 Pulse 58 MON; Pulse Ox 97% ; jo3 13:08 BP 168 / 85 (auto/); jo3 13:08 Pulse 72 MON; Resp 18; Temp 97.8(O); Pulse Ox 96% ; Pain 0/10; jo3 10:16 Body Mass Index 28.34 (72.57 kg, 160.02 cm) ct3 MDM: 10:33 ECG WITH READING ER PHYS+CARDIAG ordered. EDMS 11:11 CT Head Without Contrast Ordered. EDMS 11:11 CBC with Diff Ordered. EDMS 11:11 BMP Ordered. EDMS 11:11 UA Ordered. EDMS 11:59 Financial registration complete. mm15 12:02 [facility] Payment Agreement was scanned into [employer] and attached to record. mm15 12:37 CBC with Diff Reviewed. sd1 12:37 BMP Reviewed. sd1 12:37 UA Reviewed. sd1 12:37 CT Head Without Contrast Reviewed. sd1 12:41 REGULAR DIET ROOM SERVICE ED+DIET ordered. EDMS 12:50 ED course: 80 yo female with comorbidities presents with family reporting mild mental sd1 status change and vomiting last pm with decreased appetite. patient reports feeling improved this am however fmaily had concerns so brought to ED exam well appearing in NAD lungs ctab heart rrrr abd nontender neuro intact. 12:51 Nitrofurantoin 100 mg PO once ordered. jo4 06/16 08:55 T-Sheet-- Draft Copy was scanned into [employer] and attached to record. se 11:54 ECG/EKG was scanned into [employer] and attached to record. gb Administered Medications: 06/15 13:06 Drug: Nitrofurantoin 100 mg Route: PO; jo3 Signatures: Dispatcher [employer] EDND Robyn Antony MD MD sd1 Nat Roblero, [place] Reg gb Shakeel Soriano, Cristy Rico RN, RN RN jo3 Kb Mayer mm15 Nila Reyez DO DO joRobyn Mandel The chart was reviewed and I authenticate all verbal orders and agree with the evaluation and treatment provided.Attachments: 12:02 [facility] Payment Agreement mm15 06/16 08:55 T-Sheet-- Draft Copy [facility] 11:54 ECG/EKG gb Chart Complete MTDD
== END 2016-06-15 13:49 | disposition home or self-care (01) ==
LOC: M ED 10:14
DX: N39.0 Urinary tract infection, site not specified (principal); F03.90 Unspecified dementia, unspecified severity, without behavioral disturbance, psychotic disturbance, mood disturbance, and anxiety; E11.9 Type 2 diabetes mellitus without complications; K57.32 Diverticulitis of large intestine without perforation or abscess without bleeding; I10 Essential (primary) hypertension; Z87.891 Personal history of nicotine dependence; Z79.899 Other long term (current) drug therapy; Z79.84 Long term (current) use of oral hypoglycemic drugs

== ENCOUNTER → 2017-03-06 | Outpatient (CLI) | payer OTHER, MEDICAID ==
[~2017-03-06] MED LIST: ATOR40TA75; FLUO20CA19; HYDROCO/APAP; METF500T4; NAMZ1CAP2; POLY1POW4; VITA100072 PO
[2017-03-06 10:16] LABS: BASO % 0.3 % (0.0-1.0); EOS % 0.2 % (0.0-3.0); IMMATURE GRANULOCYTE % 0.3 % (0-0); LYMPH # 1.6 10^3/uL (1.5-4.5); LYMPH % 15.1 % (24.0-44.0); MEAN CORPUSCULAR HEMOGLOBIN 29.8 pg (27.0-33.0); MEAN CORPUSCULAR HGB CONC 33.4 g/dl (32.0-36.5); MEAN CORPUSCULAR VOLUME 89.3 fl (80.0-96.0); MONO # 0.8 10^3/uL (0.0-0.8); MONO % 7.6 % (0.0-5.0); NEUTROPHILS # 7.9 10^3/uL (1.8-7.7); NEUTROPHILS % 76.5 % (36.0-66.0); PLATELET COUNT, AUTOMATED 217 10^3/uL (150-450); RED CELL DISTRIBUTION WIDTH 13.2 % (11.5-14.5); WHITE BLOOD COUNT 10.3 10^3/uL (4.0-10.0)
[2017-03-06 10:27] LABS: ADD MANUAL DIFFER NO; DIFF SLIDE NUMBER 162
[2017-03-06 11:21] LABS: ALBUMIN 3.5 GM/DL (3.2-5.2); ALBUMIN/GLOBULIN RATIO 1.09 (1.00-1.93); ALKALINE PHOSPHATASE 93 U/L (45-117); ALT/SGPT 14 U/L (12-78); ANION GAP 9 MEQ/L (8-16); AST/SGOT 16 U/L (15-37); BILIRUBIN,TOTAL 1.1 MG/DL (0.2-1.0); BLOOD UREA NITROGEN 15 MG/DL (7-18); CALCIUM LEVEL 8.8 MG/DL (8.8-10.2); CARBON DIOXIDE LEVEL 33 MEQ/L (21-32); CHLORIDE LEVEL 96 MEQ/L (98-107); CHOLESTEROL LEVEL 127 MG/DL (<200); CREATININE FOR GFR 0.89 MG/DL (0.55-1.02); GLOMERULAR FILTRATION RATE > 60.0 (>32); GLUCOSE, FASTING 114 MG/DL (83-110); POTASSIUM SERUM 3.1 MEQ/L (3.5-5.1); SODIUM LEVEL 138 MEQ/L (136-145); TOTAL PROTEIN 6.7 GM/DL (6.4-8.2); TRIGLYCERIDES LEVEL 117 MG/DL (<150)
== END ==
LOC: M LAB 09:51
PROVIDERS: ATTEND Emergency Medicine
DX: E11.9 Type 2 diabetes mellitus without complications (principal); I10 Essential (primary) hypertension; E78.2 Mixed hyperlipidemia; E55.9 Vitamin D deficiency, unspecified

== ENCOUNTER → 2017-08-14 | Outpatient (REF) | payer OTHER, MEDICAID ==
[2017-08-14 17:58] LABS: TOTAL 25(OH) VITAMIN D 23.7 NG/ML (30.0-100.0)
[2017-08-14 18:01] LABS: ESTIMATED AVERAGE GLUCOSE 123 MG/DL (60-110); HEMOGLOBIN A1c 5.9 %
[2017-08-14 18:04] LABS: ALBUMIN 3.8 GM/DL (3.2-5.2); ALBUMIN/GLOBULIN RATIO 1.15 (1.00-1.93); ALKALINE PHOSPHATASE 105 U/L (45-117); ALT/SGPT 17 U/L (12-78); ANION GAP 9 MEQ/L (8-16); AST/SGOT 14 U/L (7-37); BILIRUBIN,TOTAL 0.4 MG/DL (0.2-1.0); BLOOD UREA NITROGEN 22 MG/DL (7-18); CARBON DIOXIDE LEVEL 29 MEQ/L (21-32); CHLORIDE LEVEL 99 MEQ/L (98-107); CHOLESTEROL LEVEL 228 MG/DL (<200); CHOLESTEROL RISK RATIO 3.402 (<5); CREATININE FOR GFR 0.98 MG/DL (0.55-1.30); GLUCOSE, FASTING 232 MG/DL (70-100); HDL CHOLESTEROL 67 MG/DL (>40); LDL CHOLESTEROL 140.8 MG/DL (<100); NON-HDL-C 161 MG/DL; POTASSIUM SERUM 4.1 MEQ/L (3.5-5.1); SODIUM LEVEL 137 MEQ/L (136-145); TOTAL PROTEIN 7.1 GM/DL (6.4-8.2); TRIGLYCERIDES LEVEL 101 MG/DL (<150)
== END ==
LOC: M LABDRAW1 12:49
DX: E78.2 Mixed hyperlipidemia (principal); E55.9 Vitamin D deficiency, unspecified; F03.90 Unspecified dementia, unspecified severity, without behavioral disturbance, psychotic disturbance, mood disturbance, and anxiety; E11.9 Type 2 diabetes mellitus without complications; I10 Essential (primary) hypertension
CPT/HCPCS: 84443

== ENCOUNTER → 2018-03-01 | Outpatient (CLI) | payer OTHER, MEDICAID, MEDICARE ==
[2018-03-01 08:44] LABS: BASO % 0.2 % (0.0-1.0); EOS # 0.1 10^3/uL (0.0-0.50); EOS % 0.9 % (0.0-3.0); HEMATOCRIT 37.8 % (36.0-47.0); HEMOGLOBIN 12.8 g/dl (12.0-15.5); IMMATURE GRANULOCYTE % 0.7 % (0-3.0); LYMPH # 1.5 10^3/uL (1.5-4.5); MEAN CORPUSCULAR HEMOGLOBIN 30.2 pg (27.0-33.0); MEAN CORPUSCULAR HGB CONC 33.9 g/dl (32.0-36.5); MEAN CORPUSCULAR VOLUME 89.2 fl (80.0-96.0); MONO # 0.7 10^3/uL (0.0-0.8); MONO % 8.2 % (0.0-5.0); NEUTROPHILS # 5.9 10^3/uL (1.8-7.7); PLATELET COUNT, AUTOMATED 187 10^3/uL (150-450); RED BLOOD COUNT 4.24 10^6/uL (4.00-5.40); RED CELL DISTRIBUTION WIDTH 12.4 % (11.5-14.5); WHITE BLOOD COUNT 8.1 10^3/uL (4.0-10.0)
[2018-03-01 09:02] LABS: ALBUMIN 3.7 GM/DL (3.2-5.2); ALBUMIN/GLOBULIN RATIO 1.19 (1.00-1.93); ALKALINE PHOSPHATASE 93 U/L (45-117); ALT/SGPT 20 U/L (12-78); ANION GAP 10 MEQ/L (8-16); AST/SGOT 17 U/L (7-37); BILIRUBIN,TOTAL 0.4 MG/DL (0.2-1.0); BLOOD UREA NITROGEN 20 MG/DL (7-18); CARBON DIOXIDE LEVEL 28 MEQ/L (21-32); CHLORIDE LEVEL 100 MEQ/L (98-107); CHOLESTEROL LEVEL 214 MG/DL (<200); CHOLESTEROL RISK RATIO 3.292 (<5); CREATININE FOR GFR 0.84 MG/DL (0.55-1.30); GLOMERULAR FILTRATION RATE > 60.0 (>32); GLUCOSE, FASTING 104 MG/DL (70-100); HDL CHOLESTEROL 65 MG/DL (>40); LDL CHOLESTEROL 126 MG/DL (<100); NON-HDL-C 149 MG/DL; POTASSIUM SERUM 3.9 MEQ/L (3.5-5.1); SODIUM LEVEL 138 MEQ/L (136-145); TOTAL PROTEIN 6.8 GM/DL (6.4-8.2); TRIGLYCERIDES LEVEL 115 MG/DL (<150)
[2018-03-01 10:15] LABS: ESTIMATED AVERAGE GLUCOSE 120 MG/DL (60-110); HEMOGLOBIN A1c 5.8 %
[2018-03-03 09:09] LABS: TOTAL 25(OH) VITAMIN D 37.8 NG/ML (30.0-100.0)
== END ==
LOC: M LAB 08:26
DX: E11.9 Type 2 diabetes mellitus without complications (principal); I10 Essential (primary) hypertension; E78.2 Mixed hyperlipidemia; E55.9 Vitamin D deficiency, unspecified
CPT/HCPCS: 80053

== ENCOUNTER → 2018-05-30 | Outpatient (CLI) | payer OTHER, MEDICAID ==
[~2018-05-30] MED LIST changes: +AMLO5TAB6; +HYDR-3716; -POLY1POW4; +POLY33503
--- NOTE | 2018-05-30 17:13 | REP ---
Clinical: Left anterior rib injury Technique: Frontal view of the chest with multiple views of the left hemithorax. Findings: Frontal view of the chest demonstrates trace bibasilar atelectasis and possible small pleural reactions. Multiple views of the left hemithorax demonstrates no obvious acute rib fracture or pathology. Impression: Bibasilar atelectasis and small pleural reactions. No obvious acute left rib fracture. Electronically Signed by Connor Arriaga MD 05/30/2018 05:04 P
--- NOTE | 2018-05-30 17:19 | REP ---
Clinical: Left hip pain. Technique: Neutral and frog lateral views of the left hip. Findings: Generalized age-related degenerative changes noted. No acute fracture dislocation. No obvious periarticular calcifications. Surrounding soft tissues unremarkable. Impression: Age-related degenerative change. Electronically Signed by Connor Arriaga MD 05/30/2018 05:11 P
== END ==
LOC: M WUC 16:21
PROVIDERS: ATTEND Physician Assistant
DX: S20.212A Contusion of left front wall of thorax, initial encounter (principal); S70.02XA Contusion of left hip, initial encounter; J98.11 Atelectasis; X58.XXXA Exposure to other specified factors, initial encounter; Y92.9 Unspecified place or not applicable

== ENCOUNTER 2018-06-07 10:01 | Emergency (ER) | payer MEDICAID, MEDICARE, OTHER ==
[~2018-06-07] VITALS: Ht 160 cm; Wt 72.7 kg
[2018-06-07 10:01] VITALS: BP 117/69
[~2018-06-07 10:01] MED LIST changes: -AMLO5TAB6; -HYDR-3716
[2018-06-07] MEDS ORDERED: HYDR-3716 (10:11)
[2018-06-07] MEDS ORDERED: AMLO5TAB6 (10:11)
--- NOTE | 2018-06-07 11:36 | REP ---
LEFT FEMUR, FOUR VIEWS: HISTORY: Trauma. There is no acute fracture or dislocation. There is mild narrowing of the hip and knee joint spaces. IMPRESSION: There is no acute fracture or dislocation. Electronically Signed by Lazaro Rodriguez MD 06/07/2018 11:57 A
== END 2018-06-07 11:18 | disposition home or self-care (01) ==
LOC: M ED 10:01
DX: M79.652 Pain in left thigh (principal); R29.6 Repeated falls; W06.XXXA Fall from bed, initial encounter; Y92.092 Bedroom in other non-institutional residence as the place of occurrence of the external cause; F03.90 Unspecified dementia, unspecified severity, without behavioral disturbance, psychotic disturbance, mood disturbance, and anxiety; E78.00 Pure hypercholesterolemia, unspecified; K59.00 Constipation, unspecified; Z79.899 Other long term (current) drug therapy; Z79.84 Long term (current) use of oral hypoglycemic drugs

== ENCOUNTER 2018-06-18 11:02 | Emergency (ER) | payer MEDICARE, MEDICAID ==
[~2018-06-18] VITALS: Ht 160 cm; Wt 76.8 kg
[~2018-06-18 11:02] MED LIST changes: -BEDSMIS4 XX; -ELIQ5TAB PO; -LEXA1TAB PO; -VITA2000; -[UNRECOGNIZED DRUG - CODE] XX
[2018-06-18] MEDS ORDERED: VITA2000 (11:13)
[2018-06-18] MEDS ORDERED: LEXA1TAB PO (11:13)
[2018-06-18 11:50] LABS: HEMATOCRIT 35.3 % (36.0-47.0); HEMOGLOBIN 11.4 g/dl (12.0-15.5); MEAN CORPUSCULAR HEMOGLOBIN 29.9 pg (27.0-33.0); MEAN CORPUSCULAR HGB CONC 32.3 g/dl (32.0-36.5); MEAN CORPUSCULAR VOLUME 92.7 fl (80.0-96.0); PLATELET COUNT, AUTOMATED 209 10^3/uL (150-450); RED BLOOD COUNT 3.81 10^6/uL (4.00-5.40); WHITE BLOOD COUNT 9.4 10^3/uL (4.0-10.0)
[2018-06-18 11:59] LABS: INR 0.94; PROTHROMBIN TIME 12.7 SECONDS (12.1-14.4)
[2018-06-18 12:00] LABS: PARTIAL THROMBOPLASTIN TIME 24.8 SECONDS (25.4-37.6)
[2018-06-18 12:34] LABS: BLOOD UREA NITROGEN 20 MG/DL (7-18); CALCIUM LEVEL 9.1 MG/DL (8.8-10.2); CARBON DIOXIDE LEVEL 26 MEQ/L (21-32); CHLORIDE LEVEL 101 MEQ/L (98-107); CREATININE FOR GFR 0.97 MG/DL (0.55-1.30); GLOMERULAR FILTRATION RATE 58.5 (>32); GLUCOSE, FASTING 137 MG/DL (70-100); NT-PRO BNP 146 PG/ML (<450); POTASSIUM SERUM 4.2 MEQ/L (3.5-5.1); SODIUM LEVEL 139 MEQ/L (136-145); TROPONIN I < 0.02 NG/ML (< 0.10)
[2018-06-18] MEDS ORDERED: [UNRECOGNIZED DRUG - CODE] XX ×2 (13:48→13:51)
[2018-06-18] MEDS ORDERED: BEDSMIS4 XX (13:49)
[2018-06-18] MEDS ORDERED: ELIQ5TAB PO (13:52)
[2018-06-18] MEDS ORDERED: APIXABAN 5 MG TAB (ELIQUIS) PO ONE (14:00)
[2018-06-18 14:52] VITALS: BP 126/73
[2018-06-19 06:34] LABS: AMORPHOUS SEDIMENT SMALL (NEGATIVE); APPEARANCE, URINE HAZY (CLEAR); BACTERIA, URINE AUTO 1+ (NEGATIVE); BILIRUBIN, URINE AUTO NEGATIVE (NEGATIVE); BLOOD, URINE BLOOD 2+ (NEGATIVE); COLOR, URINE YELLOW (YELLOW); GLUCOSE, URINE (UA) AUTO NEGATIVE (NEGATIVE); KETONE, URINE AUTO NEGATIVE (NEGATIVE); LEUKOCYTE ESTERASE, URINE AUTO 1+ (NEGATIVE); NITRITE, URINE AUTO POSITIVE (NEGATIVE); PROTEIN, URINE AUTO NEGATIVE (NEGATIVE); RBC, URINE AUTO 18 /HPF (0-3); SPECIFIC GRAVITY URINE AUTO 1.014 (1.002-1.035); SQUAMOUS EPITHELIAL CELL UR AU 1 /HPF (0-6); UROBILINOGEN, URINE AUTO 0.2 mg/dL (0.0-2.0); WBC, URINE AUTO 17 /HPF (0-3)
[2018-06-23 17:23] LABS: ANTI THROMBIN 3 ANTIGEN IMMUNO 108 % (72-124); ANTI THROMBIN 3 FUNCT ACTIVITY 119 % (75-135); CARDIOLIPIN IGA ANTIBODY <9 APL U/mL (0-11); CARDIOLIPIN IGG ANTIBODY <9 GPL U/mL (0-14); CARDIOLIPIN IGM ANTIBODY <9 MPL U/mL (0-12); PHOSPHOLIPIDS LEVEL 276 mg/dL (150-250); PROTEIN C FUNCTIONAL ACTIVITY 178 % (73-180); PROTEIN S FUNCTIONAL ACTIVITY 83 % (63-140)
[2018-06-24 08:57] LABS: DRVV SCREEN 58.8 SEC
[2018-06-24 09:12] LABS: PTT LUPUS TYPE ANTICOAG SCREEN 1.4 (0-1.2)
[2018-06-24 09:20] LABS: DRVV CONFIRM 45.8 SEC; LUPUS CONFIRM RATIO 1.2
[2018-06-24 09:24] LABS: NORMALIZED RATIO 1.17 (0.00-1.20)
== END 2018-06-18 14:58 | disposition home or self-care (01) ==
LOC: M ED 11:02
DX: R41.82 Altered mental status, unspecified (principal); E11.69 Type 2 diabetes mellitus with other specified complication; E78.2 Mixed hyperlipidemia; E55.9 Vitamin D deficiency, unspecified

== ENCOUNTER → 2018-06-18 | Outpatient (CLI) | payer MEDICARE ==
[~2018-06-18] MED LIST changes: +AMLO5TAB6; +BEDSMIS4 XX; +ELIQ5TAB PO; +HYDR-3716; +LEXA1TAB PO; +VITA2000; +[UNRECOGNIZED DRUG - CODE] XX
[2018-06-18 09:06] LABS: BASO % 0.3 % (0.0-1.0); EOS # 0.1 10^3/uL (0.0-0.50); EOS % 1.6 % (0.0-3.0); HEMATOCRIT 35.7 % (36.0-47.0); HEMOGLOBIN 11.5 g/dl (12.0-15.5); LYMPH # 1.2 10^3/uL (1.5-4.5); LYMPH % 13.8 % (24.0-44.0); MEAN CORPUSCULAR HEMOGLOBIN 29.9 pg (27.0-33.0); MEAN CORPUSCULAR HGB CONC 32.2 g/dl (32.0-36.5); MONO # 0.7 10^3/uL (0.0-0.8); MONO % 7.5 % (0.0-5.0); NEUTROPHILS # 6.7 10^3/uL (1.8-7.7); NEUTROPHILS % 76.1 % (36.0-66.0); PLATELET COUNT, AUTOMATED 224 10^3/uL (150-450); RED BLOOD COUNT 3.84 10^6/uL (4.00-5.40); WHITE BLOOD COUNT 8.8 10^3/uL (4.0-10.0)
[2018-06-18 09:26] LABS: ALBUMIN 3.2 GM/DL (3.2-5.2); ALT/SGPT 18 U/L (12-78); BILIRUBIN,TOTAL 0.4 MG/DL (0.2-1.0); BLOOD UREA NITROGEN 20 MG/DL (7-18); CARBON DIOXIDE LEVEL 30 MEQ/L (21-32); CHLORIDE LEVEL 102 MEQ/L (98-107); CHOLESTEROL LEVEL 239 MG/DL (<200); CHOLESTEROL RISK RATIO 4.267 (<5); CREATININE FOR GFR 0.92 MG/DL (0.55-1.30); GLOMERULAR FILTRATION RATE > 60.0 (>32); GLUCOSE, FASTING 121 MG/DL (70-100); HDL CHOLESTEROL 56 MG/DL (>40); LDL CHOLESTEROL 143 MG/DL (<100); NON-HDL-C 183 MG/DL; POTASSIUM SERUM 4.2 MEQ/L (3.5-5.1); SODIUM LEVEL 140 MEQ/L (136-145); TOTAL PROTEIN 6.4 GM/DL (6.4-8.2); TRIGLYCERIDES LEVEL 199 MG/DL (<150)
[2018-06-18 10:00] LABS: TOTAL 25(OH) VITAMIN D 48.7 NG/ML (30.0-100.0)
[2018-06-18 10:15] LABS: HEMOGLOBIN A1c 6.2 %
== END ==
LOC: M LAB 08:33
PROVIDERS: ATTEND Physician Assistant
DX: R41.82 Altered mental status, unspecified (principal); E11.69 Type 2 diabetes mellitus with other specified complication; E78.2 Mixed hyperlipidemia; E55.9 Vitamin D deficiency, unspecified

== ENCOUNTER → 2018-06-24 | Outpatient (REF) | payer MEDICARE, MEDICAID ==
[~2018-06-24] MED LIST changes: +BEDSMIS4 XX; +ELIQ5TAB PO; +LEXA1TAB PO; +VITA2000; +[UNRECOGNIZED DRUG - CODE] XX
== END ==
LOC: M LAB REF 16:53
PROVIDERS: ATTEND Physician Assistant
DX: N39.0 Urinary tract infection, site not specified (principal)

== ENCOUNTER → 2018-08-14 | Outpatient (REF) | payer MEDICARE, MEDICAID | LOC: M LAB REF 12:00 | PROVIDERS: ATTEND Internal Medicine | DX: R31.9 Hematuria, unspecified (principal) ==

== ENCOUNTER → 2018-08-31 | Outpatient (REF) | payer MEDICARE, MEDICAID ==
[2018-08-31 13:30] LABS: INFLUENZA A AMPLIFICATION POSITIVE (NEGATIVE); INFLUENZA B AMPLIFICATION NEGATIVE (NEGATIVE)
== END ==
LOC: M LAB REF 17:25
PROVIDERS: ATTEND Physician Assistant Medical
DX: B34.9 Viral infection, unspecified (principal)

== ENCOUNTER → 2018-11-27 | Outpatient (REF) | payer MEDICARE, MEDICAID ==
[~2018-11-27] MED LIST changes: +VITA100018 PO; -VITA100072 PO
== END ==
LOC: M LAB REF 16:14
PROVIDERS: ATTEND Physician Assistant
DX: R31.9 Hematuria, unspecified (principal)

== ENCOUNTER → 2020-01-18 | Outpatient (REF) | payer MEDICARE, MEDICAID ==
[~2020-01-18] MED LIST changes: +AMLO1TAB24; -AMLO5TAB6; -FLUO20CA19; +FLUO20CA22; +METF-838; -METF500T4
== END ==
LOC: M LAB REF 15:27
PROVIDERS: ATTEND Physician Assistant Medical
DX: N39.0 Urinary tract infection, site not specified (principal)

== ENCOUNTER → 2020-05-13 | Outpatient (REF) | payer MEDICARE, MEDICAID | LOC: M LAB REF 10:37 | PROVIDERS: ATTEND Registered Nurse | DX: N39.0 Urinary tract infection, site not specified (principal) ==

== ENCOUNTER → 2020-05-16 | Outpatient (REF) | payer MEDICARE, MEDICAID | LOC: M LAB REF 16:31 | PROVIDERS: ATTEND Registered Nurse | DX: N39.0 Urinary tract infection, site not specified (principal) ==

== ENCOUNTER → 2020-07-11 | Outpatient (REF) | payer MEDICARE, MEDICAID | LOC: M WUC 15:44 | PROVIDERS: ATTEND Physician Assistant | DX: N39.0 Urinary tract infection, site not specified (principal) ==

== ENCOUNTER → 2020-07-23 | Outpatient (REF) | payer MEDICARE, MEDICAID | LOC: M LAB REF 09:07 | PROVIDERS: ATTEND Registered Nurse | DX: N39.0 Urinary tract infection, site not specified (principal) ==

== ENCOUNTER → 2020-08-05 | Outpatient (CLI) | payer MEDICARE, MEDICAID ==
[2020-08-05 13:13] LABS: BASO % 0.5 % (0.0-1.0); EOS # 0.1 10^3/uL (0.0-0.5); EOS % 1.2 % (0.0-3.0); HEMATOCRIT 41.9 % (36.0-47.0); HEMOGLOBIN 13.4 g/dl (12.0-15.5); LYMPH # 1.6 10^3/uL (1.5-5.0); LYMPH % 19.3 % (24.0-44.0); MEAN CORPUSCULAR VOLUME 93.9 fl (80.0-96.0); MONO # 0.6 10^3/uL (0.0-0.8); MONO % 7.3 % (2.0-8.0); NEUTROPHILS # 5.8 10^3/uL (1.5-8.5); NEUTROPHILS % 71.2 % (36.0-66.0); PLATELET COUNT, AUTOMATED 195 10^3/uL (150-450); RED BLOOD COUNT 4.46 10^6/uL (4.00-5.40); WHITE BLOOD COUNT 8.1 10^3/uL (4.0-10.0)
[2020-08-05 13:53] LABS: CALCIUM LEVEL 9.5 MG/DL (8.8-10.2); CHOLESTEROL RISK RATIO 5.94 (<5); CREATININE FOR GFR 0.99 MG/DL (0.55-1.30); GLOMERULAR FILTRATION RATE 56.9 (>32); POTASSIUM SERUM 3.6 MEQ/L (3.5-5.1)
[2020-08-05 14:34] LABS: HEMOGLOBIN A1c 6.8 %
== END ==
LOC: M LAB 11:53
PROVIDERS: ATTEND Registered Nurse
DX: E78.5 Hyperlipidemia, unspecified (principal); E11.9 Type 2 diabetes mellitus without complications; I10 Essential (primary) hypertension

== ENCOUNTER 2020-09-16 14:17 | Emergency (ER) | payer MEDICARE, MEDICAID ==
[~2020-09-16 14:17] MED LIST changes: -CIPR-249 PO; -METH-855 PO
[2020-09-16 14:45] VITALS: BP 137/80
[2020-09-16] MEDS ORDERED: METH-855 PO (14:57)
[2020-09-16] MEDS ORDERED: NS 1,000 ML IV ONE (16:55)
[2020-09-16 17:15] LABS: BASO % 0.4 % (0.0-1.0); EOS # 0.1 10^3/uL (0.0-0.5); HEMATOCRIT 40.4 % (36.0-47.0); HEMOGLOBIN 13.3 g/dl (12.0-15.5); LYMPH # 1.9 10^3/uL (1.5-5.0); MEAN CORPUSCULAR HEMOGLOBIN 30.3 pg (27.0-33.0); MEAN CORPUSCULAR HGB CONC 32.9 g/dl (32.0-36.5); MONO # 0.8 10^3/uL (0.0-0.8); MONO % 7.6 % (2.0-8.0); NEUTROPHILS # 7.7 10^3/uL (1.5-8.5); NEUTROPHILS % 72.3 % (36.0-66.0); PLATELET COUNT, AUTOMATED 190 10^3/uL (150-450); RED BLOOD COUNT 4.39 10^6/uL (4.00-5.40); WHITE BLOOD COUNT 10.7 10^3/uL (4.0-10.0)
[2020-09-16 17:23] LABS: INR 0.89; PROTHROMBIN TIME 12.3 SECONDS (12.5-14.3)
[2020-09-16 17:41] LABS: ALBUMIN 3.2 GM/DL (3.2-5.2); ALT/SGPT 21 U/L (12-78); BILIRUBIN,DIRECT < 0.1 MG/DL (0.0-0.2); BILIRUBIN,TOTAL 0.6 MG/DL (0.2-1.0); TOTAL PROTEIN 6.5 GM/DL (6.4-8.2)
[2020-09-16] MEDS ORDERED: ISOVUE-370 76% 100ML VIAL As Ordered ONE (17:44)
--- NOTE | 2020-09-16 18:25 | REPVR ---
PROCEDURE INFORMATION: Exam: CT Abdomen And Pelvis With Contrast Exam date and time: 09/16/2020 5:37 PM Age: 84 years old Clinical indication: Other: Vaginal bleeding TECHNIQUE: Imaging protocol: Computed tomography of the abdomen and pelvis with contrast. Radiation optimization: All CT scans at this facility use at least one of these dose optimization techniques: automated exposure control; mA and/or kV adjustment per patient size (includes targeted exams where dose is matched to clinical indication); or iterative reconstruction. Contrast material: ISOVUE 370; Contrast volume: 100 ml; Contrast route: INTRAVENOUS (IV); COMPARISON: CR HIP COMPLETE LEFT 05/30/2018 4:30 PM FINDINGS: Lungs: Bibasilar atelectasis. Liver: There is a diffuse decrease in hepatic parenchymal density, consistent with steatosis. 2.6 cm lobular focus with peripheral nodular enhancement demonstrated in segment 2 left lobe of the liver likely represents a hemangioma. Lesion incompletely evaluated on this single phase study. Correlation with nonemergent hepatic ultrasound suggested if clinically desired. Gallbladder and bile ducts: There are gallstones and sludge present. No evidence of cholecystitis demonstrated. Pancreas: There is diffuse pancreatic atrophy. Spleen: Normal. No splenomegaly. Adrenal glands: There is bilateral adrenal hyperplasia. Kidneys and ureters: Bilateral simple renal cysts measure up to 2.9 cm in the upper pole of the right kidney. No follow-up suggested. Stomach and bowel: Moderate diverticulosis is present in the distal colon. No diverticulitis. Appendix: No evidence of appendicitis. Intraperitoneal space: Unremarkable. No free air. No significant fluid collection. Vasculature: Unremarkable. No abdominal aortic aneurysm. Lymph nodes: Unremarkable. No enlarged lymph nodes. Urinary bladder: There is diffuse thickening of the wall of the bladder with mild perivesicular inflammatory changes. Findings may be related cystitis. Clinical correlation suggested. Reproductive: Unremarkable as visualized. Bones/joints: Age indeterminate compression deformity of L2. Mild anterolisthesis of L4 on L5. Mild retrolisthesis of L1 on L2. Mild central spinal stenosis L1-L2, moderate central spinal stenosis L2-L3, L3-L4 and severe central spinal stenosis L4-L5. Soft tissues: Unremarkable. IMPRESSION: 1. There is a diffuse decrease in hepatic parenchymal density, consistent with steatosis. 2. 2.6 cm lobular focus with peripheral nodular enhancement demonstrated in segment 2 left lobe of the liver likely represents a hemangioma. Lesion incompletely evaluated on this single phase study. Correlation with nonemergent hepatic ultrasound suggested if clinically desired. 3. There are gallstones and sludge present. No evidence of cholecystitis demonstrated. 4. There is diffuse pancreatic atrophy. 5. There is bilateral adrenal hyperplasia. 6. Moderate diverticulosis is present in the distal colon. No diverticulitis. 7. There is diffuse thickening of the wall of the bladder with mild perivesicular inflammatory changes. Findings may be related cystitis. Clinical correlation suggested. COMMENTS: Consistent with the [employer]'s Incidental Findings Committee white paper (J Am Barry Radiol 2018): Any incidental renal lesion less than 1 cm or classified as too small to characterize, or any incidental cystic renal lesion characterized as simple-appearing, is likely benign. No follow-up imaging is recommended for these lesions per consensus recommendations based on imaging criteria. Electronically signed by: Rommel Vasques On 09/16/2020 18:25:48 PM
[2020-09-16] MEDS ORDERED: CIPROFLOXACIN 500MG TABLET PO ONE (18:50)
[2020-09-16] MEDS ORDERED: CIPR-249 PO (18:52)
== END 2020-09-16 19:23 | disposition home or self-care (01) ==
LOC: EDBD 14:17 → M ED 14:17
DX: N30.01 Acute cystitis with hematuria (principal); R31.9 Hematuria, unspecified; E11.9 Type 2 diabetes mellitus without complications; E78.5 Hyperlipidemia, unspecified; F03.90 Unspecified dementia, unspecified severity, without behavioral disturbance, psychotic disturbance, mood disturbance, and anxiety; K57.92 Diverticulitis of intestine, part unspecified, without perforation or abscess without bleeding; K59.00 Constipation, unspecified; Z86.718 Personal history of other venous thrombosis and embolism; Z87.448 Personal history of other diseases of urinary system; K80.20 Calculus of gallbladder without cholecystitis without obstruction; R93.2 Abnormal findings on diagnostic imaging of liver and biliary tract; E27.8 Other specified disorders of adrenal gland; Z79.82 Long term (current) use of aspirin; Z79.84 Long term (current) use of oral hypoglycemic drugs; Z79.899 Other long term (current) drug therapy
CPT/HCPCS: 74177; 80047; 80076; 81001; 85025; 85610; 85730; 87088; 87186; 96360; 96361; 99284; Q9967

== ENCOUNTER → 2020-09-16 | Outpatient (REF) | payer MEDICARE, MEDICAID ==
[~2020-09-16] MED LIST changes: +CIPR-249 PO; +METH-855 PO
== END ==
LOC: M LAB REF 16:46
PROVIDERS: ATTEND Internal Medicine
DX: R31.9 Hematuria, unspecified (principal)

== ENCOUNTER 2021-01-16 11:07 | Emergency (ER) | payer MEDICARE, MEDICAID ==
[~2021-01-16] VITALS: Ht 162.6 cm; Wt 74.7 kg
[~2021-01-16 11:07] MED LIST changes: +CIPR-249 PO; +METH-855 PO
[2021-01-16 12:30] LABS: BASO % 0.1 % (0.0-1.0); EOS % 0.1 % (0.0-3.0); HEMATOCRIT 37.4 % (36.0-47.0); HEMOGLOBIN 12.1 g/dl (12.0-15.5); LYMPH # 0.8 10^3/uL (1.5-5.0); LYMPH % 5.6 % (24.0-44.0); MEAN CORPUSCULAR HEMOGLOBIN 30.1 pg (27.0-33.0); MEAN CORPUSCULAR HGB CONC 32.4 g/dl (32.0-36.5); MONO # 1.1 10^3/uL (0.0-0.8); MONO % 7.7 % (2.0-8.0); NEUTROPHILS # 12.8 10^3/uL (1.5-8.5); PLATELET COUNT, AUTOMATED 158 10^3/uL (150-450); RED BLOOD COUNT 4.02 10^6/uL (4.00-5.40); WHITE BLOOD COUNT 14.8 10^3/uL (4.0-10.0)
--- NOTE | 2021-01-16 12:35 | REP ---
INDICATION: SEPSIS/SHOCK. COMPARISON: Comparison chest x-ray May 30 2018. TECHNIQUE: Portable upright AP chest radiograph. FINDINGS: The lungs are again exposed at a relatively low level of inspiration. No infiltrate is seen. There is mild linear fibrosis in the left lateral pleural angle. Pulmonary vasculature is not increased. The aorta is somewhat tortuous. Heart size is borderline but difficult to evaluate.. IMPRESSION: No acute infiltrate. Borderline heart size.. <Electronically signed by Jalil Hodge > 01/16/21 [id number]
[2021-01-16 12:45] LABS: INR 1.23; PROTHROMBIN TIME 15.9 SECONDS (12.7-14.5)
[2021-01-16 13:07] LABS: ALBUMIN 2.8 GM/DL (3.2-5.2); ALT/SGPT 21 U/L (12-78); AMYLASE 19 U/L (25-115); BILIRUBIN,DIRECT 0.2 MG/DL (0.0-0.2); BILIRUBIN,TOTAL 0.7 MG/DL (0.2-1.0); BLOOD UREA NITROGEN 23 MG/DL (7-18); CARBON DIOXIDE LEVEL 22 MEQ/L (21-32); CHLORIDE LEVEL 101 MEQ/L (98-107); CK-MB VALUE MASS 1.9 NG/ML (<3.6); CPK CREATINE PHOSPHOKINASE 105 U/L (26-192); CREATININE FOR GFR 1.25 MG/DL (0.55-1.30); GLOMERULAR FILTRATION RATE 43.4 (>32); GLUCOSE, FASTING 286 MG/DL (70-100); MB/CK RELATIVE INDEX 1.81 (< OR =4); POTASSIUM SERUM 3.8 MEQ/L (3.5-5.1); SODIUM LEVEL 132 MEQ/L (136-145); TROPONIN I < 0.02 NG/ML (< 0.10)
[2021-01-16 14:30] LABS: APPEARANCE, URINE TURBID (CLEAR); BACTERIA, URINE AUTO NEGATIVE (NEGATIVE); BILIRUBIN, URINE AUTO NEGATIVE (NEGATIVE); BLOOD, URINE BLOOD 2+ (NEGATIVE); COLOR, URINE YELLOW (YELLOW); GLUCOSE, URINE (UA) AUTO 2+ mg/dL (NEGATIVE); KETONE, URINE AUTO NEGATIVE (NEGATIVE); LEUKOCYTE ESTERASE, URINE AUTO 3+ (NEGATIVE); MUCUS, URINE SMALL (NEGATIVE); NITRITE, URINE AUTO NEGATIVE (NEGATIVE); PROTEIN, URINE AUTO 2+ mg/dL (NEGATIVE); RBC, URINE AUTO 14 /HPF (0-3); SPECIFIC GRAVITY URINE AUTO 1.016 (1.002-1.035); SQUAMOUS EPITHELIAL CELL UR AU 5 /HPF (0-6); UROBILINOGEN, URINE AUTO 0.2 mg/dL (0.0-2.0); WBC, URINE AUTO TNTC /HPF (0-3)
[2021-01-16] MEDS ORDERED: CIPR-250 PO (15:34)
[2021-01-16 15:45] VITALS: BP 139/66
[2021-01-16] MEDS ORDERED: CIPROFLOXACIN 250MG TAB PO ONE (16:10)
--- NOTE | 2021-01-16 17:19 | ECGEPIP ---
[facility] - ED Test Date: 2021-01-16 Pat Name: JOHANNA NEVILLE Department: Room: - Gender: Female Site Medical Director: vc : 1935 Requested By: Hank Muñoz Order Number: [id number] Reading MD: Shakeel Meza Measurements Intervals [place] Rate: 71 P: -13 [place]: 116 QRS: -35 QRSD: 84 T: 103 QT: 420 QTc: 456 Interpretive Statements Normal sinus rhythm Left axis deviation Nonspecific T wave abnormality low voltges in precordial leads new since tracing done 06-15-16 Electronically Signed on 01-16-2021 17:19:14 EDT by Shakeel Meza
== END 2021-01-16 16:43 | disposition home or self-care (01) ==
LOC: EDSEX 11:07 → EDBD 11:07 → M ED 11:07 → CANBEDREQ 13:03 → M ED 16:43
DX: N39.0 Urinary tract infection, site not specified (principal); F02.80 Dementia in other diseases classified elsewhere, unspecified severity, without behavioral disturbance, psychotic disturbance, mood disturbance, and anxiety; E11.9 Type 2 diabetes mellitus without complications; Z87.891 Personal history of nicotine dependence; Z79.899 Other long term (current) drug therapy; Z79.01 Long term (current) use of anticoagulants

== ENCOUNTER → 2021-01-26 | Outpatient (REF) | payer MEDICARE, MEDICAID ==
[~2021-01-26] MED LIST changes: +CIPR-250 PO
== END ==
LOC: M LAB REF 11:17
PROVIDERS: ATTEND Internal Medicine
DX: N39.0 Urinary tract infection, site not specified (principal)

== ENCOUNTER → 2021-04-12 | Outpatient (REF) | payer MEDICARE, MEDICAID | LOC: M LAB REF 16:35 | PROVIDERS: ATTEND Registered Nurse | DX: N39.0 Urinary tract infection, site not specified (principal) ==

== ENCOUNTER → 2021-05-17 | Outpatient (REF) | payer MEDICARE, MEDICAID | LOC: M LAB REF 16:43 | PROVIDERS: ATTEND Registered Nurse | DX: N39.0 Urinary tract infection, site not specified (principal) ==

== ENCOUNTER → 2021-06-05 | Outpatient (REF) | payer MEDICARE, MEDICAID | LOC: M LAB REF 16:46 | PROVIDERS: ATTEND Registered Nurse | DX: R41.82 Altered mental status, unspecified (principal) ==